=== PATIENT | female | born 1930 | race Caucasian/White ===

== ENCOUNTER 2019-10-18 15:18 | Observation (INO) ==
[2019-10-18] MEDS ORDERED: ONDANSETRON 4 MG/2 ML VIAL IV STA (16:13)
[2019-10-18] MEDS ORDERED: NITROGLYCERIN 2% OINT 1 INCH/GM PACK TOP STA (16:13)
[2019-10-18] MEDS ORDERED: MORPHINE 4 MG/1 ML VIAL IV STA (16:13)
[2019-10-18 16:22] LABS: Basophils % 0.5 % (0.0-0.8); Eosinophils # 0.1 10*3/uL (0.0-0.87); Eosinophils % 1.7 % (0.00-10.9); Hematocrit 39.6 VOL% (35.7-47.0); Hemoglobin 12.5 GM/DL (12.0-16.0); Immature Granulocytes % 0.2 %; Immature Granulocytes Absolute 0.02 #; Lymphocytes % 23.4 % (21.3-54.2); Mean Corpuscular HGB Conc 31.6 GM/DL (32-36); Mean Corpuscular Volume 92.7 FL (87-102); Mean Platelet Volume 10.1 FL (9.6-12.0); Neutrophils % 65.2 % (38.7-73.9); Platelet Count 233 T/CUMM (130-400); Red Blood Count 4.27 MC/CUMM (3.8-5.5); Red Cell Distribution Width 13.1 % (9.3-17.3); White Blood Count 8.4 T/CUMM (4-12)
[2019-10-18 16:25] LABS: INR 0.9
[2019-10-18 16:41] LABS: Albumin 3.8 G/DL (3.4-5.0); Bilirubin,Total 0.5 MG/DL (0.2-1.0); Calcium 8.8 MG/DL (8.5-10.1); Osmolality,Calculated 290.8 MOS/KG (273-304); Total Protein 6.8 G/DL (6.4-8.3)
[2019-10-18] MEDS ORDERED: ONDANSETRON 4 MG/2 ML VIAL IV PRN (17:49)
[2019-10-18] MEDS ORDERED: GLUCAGON 1 MG VIAL IM PRN (17:49)
[2019-10-18] MEDS ORDERED: MORPHINE 4 MG/1 ML VIAL IV PRN (17:49)
[2019-10-18] MEDS ORDERED: POTASSIUM CHLORIDE 20 MEQ TABLET PO PRN (17:49)
[2019-10-18] MEDS ORDERED: MAGNESIUM SULF RIDER 2 GM in PREMIX 1 EACH IV PRN (17:49)
[2019-10-18] MEDS ORDERED: DEXTROSE 50% 25 GM/50 ML VIAL IV PRN (17:49)
[2019-10-18] MEDS ORDERED: FLUTICASONE 50 MCG NASAL SPRAY 16 GM BOTTLE BOTH NARES PRN (18:19)
[2019-10-18] MEDS ORDERED: ENOXAPARIN 60 MG/0.6 ML SYRINGE SUBCUT SCH (18:30)
[2019-10-18] MEDS ORDERED: NON-FORMULARY MEDICATION (Omeprazole 20 MG) PO SCH (21:00)
[2019-10-18] MEDS: LACTATED RINGERS 1,000 ML IV SCH ×2 (21:48→21:50)
[2019-10-18] MEDS: INSULIN LISPRO 100 UNIT/ML SUBCUT SCH (21:50)
[2019-10-18] MEDS: carvediloL 12.5 MG TABLET PO SCH (21:51)
[2019-10-19 06:22] LABS: Basophils # 0.1 10*3/uL (0.0-0.2); Basophils % 0.9 % (0.0-0.8); Eosinophils # 0.2 10*3/uL (0.0-0.87); Eosinophils % 2.8 % (0.00-10.9); Hematocrit 37.2 VOL% (35.7-47.0); Hemoglobin 11.7 GM/DL (12.0-16.0); Immature Granulocytes % 0.2 %; Immature Granulocytes Absolute 0.01 #; Lymphocytes # 1.6 10*3/uL (1.4-4.0); Lymphocytes % 29.9 % (21.3-54.2); Mean Corpuscular HGB Conc 31.5 GM/DL (32-36); Mean Corpuscular Volume 92.8 FL (87-102); Mean Platelet Volume 10.3 FL (9.6-12.0); Monocytes % 9.1 % (1.7-12.7); Neutrophils % 57.1 % (38.7-73.9); Platelet Count 222 T/CUMM (130-400); Red Blood Count 4.01 MC/CUMM (3.8-5.5); Red Cell Distribution Width 13.1 % (9.3-17.3); White Blood Count 5.4 T/CUMM (4-12)
[2019-10-19 06:40] LABS: Bilirubin,Total 0.6 MG/DL (0.2-1.0); Calcium 8.7 MG/DL (8.5-10.1); Osmolality,Calculated 284.1 MOS/KG (273-304); Total Protein 6.2 G/DL (6.4-8.3)
[2019-10-19 06:43] LABS: Risk Ratio 1.82
[2019-10-19 08:49] VITALS: BP 189/92
[2019-10-19] MEDS ORDERED: GABAPENTIN 100 MG CAPSULE PO SCH (09:00)
[2019-10-19] MEDS ORDERED: lisinopriL 5 MG TABLET PO SCH (09:00)
[2019-10-19] MEDS ORDERED: ACETAMINOPHEN 325 MG TABLET PO SCH (09:00)
[2019-10-19] MEDS ORDERED: SERTRALINE 50 MG TABLET PO SCH (09:00)
[2019-10-19] MEDS ORDERED: ASPIRIN EC 81 MG TABLET PO SCH (09:00)
[2019-10-19] MEDS ORDERED: PANTOPRAZOLE 40 MG TABLET PO SCH (09:00)
[2019-10-19] MEDS ORDERED: SERTRALINE 25 MG TABLET PO SCH (09:00)
[2019-10-19] MEDS: INSULIN LISPRO 100 UNIT/ML SUBCUT SCH ×2 (09:11→14:10)
[2019-10-19] MEDS: carvediloL 12.5 MG TABLET PO SCH (09:11)
[2019-10-19] MEDS: LACTATED RINGERS 1,000 ML IV SCH (14:09)
== END 2019-10-19 14:11 | disposition home or self-care (01) ==
LOC: N.ED 15:18 → N.EDINP 15:18 → N.2W 18:00
PROVIDERS: ADMIT Hospitalist; ATTEND Hospitalist